=== PATIENT | female | born 1950 | race Hispanic/Latino ===

== ENCOUNTER 2016-09-08 15:38 | Emergency (ER) | payer MEDICAID, OTHER ==
[2016-09-08 15:38] VITALS: BMI 26.3
[2016-09-08 15:52] VITALS: O2SAT 98
[2016-09-08] MEDS ORDERED: Sodium Chloride 0.9% 1,000 ML IV ONE (16:25)
[2016-09-08] MEDS ORDERED: Sodium Chloride 0.9% 1,000 ML ONE (16:38)
--- NOTE | 2016-09-08 17:06 | CT ---
PROCEDURE: CT HEAD WITHOUT CONTRAST. HISTORY: left temporal headache COMPARISON: None available. TECHNIQUE: Axial computed tomography images were obtained through the head/brain without intravenous contrast. Radiation dose: Total exam DLP = 887.22 mGy-cm. This CT exam was performed using one or more of the following dose reduction techniques: Automated exposure control, adjustment of the mA and/or kV according to patient size, and/or use of iterative reconstruction technique. FINDINGS: HEMORRHAGE: No intracranial hemorrhage. BRAIN: Diffuse atrophy with prominence of the ventricles and sulci noted. No mass effect or edema. Intracranial atherosclerotic calcifications. The martinez-white matter differentiation appears intact. Please note that MRI with diffusion imaging is more sensitive in the detection of acute ischemic event. VENTRICLES: No hydrocephalus. CALVARIUM: Unremarkable. PARANASAL SINUSES: Unremarkable as visualized. No significant inflammatory changes. MASTOID AIR CELLS: Right mastoidectomy. The mastoid air cells appear grossly unremarkable. OTHER FINDINGS: None. IMPRESSION: No acute intracranial pathology identified. Findings as above.
--- NOTE | 2016-09-08 17:36 | C.PDOC ---
History Of Present Illness 66 y/o female sent from clinic for evaluation of left eye pain. Pt complains of pain and irritation to left eye, with sty to left lower eyelid becoming larger in size. Pt states she has a constant foreign body sensation in the eye. Took tylenol without relief. Pt has since developed left sided headache behind the eye, pointing toward temporal region, described as pressure. Pt also reports feeling lightheaded on the first day symptoms onset but denies dizziness, numbness (despite triage note), vision changes, fever, weakness, chest pain, SOB , slurred speech or any other complaints. Time Seen by Provider: 09/08/16 16:13 Chief Complaint (Nursing): Weakness/Neurological Deficit History Per: Patient History/Exam Limitations: no limitations Onset/Duration Of Symptoms: Days Current Symptoms Are (Timing): Worse Severity: Mild Recent travel outside of the [place]: No Past Medical History Reviewed: Historical Data, Nursing Documentation, Vital Signs Vital Signs: Last Vital Signs Temp 98.0 F 09/08/16 18:32 Pulse 62 09/08/16 18:32 Resp 16 09/08/16 18:32 BP 140/82 09/08/16 18:32 Pulse Ox 98 09/08/16 18:32 - Medical History PMH: Diabetes (NIDDM), HTN, Hypercholesterolemia, Osteoporosis Family History: States: Unknown Family Hx - Social History Hx Alcohol Use: No Hx Substance Use: No - Immunization History Hx Tetanus Toxoid Vaccination: No Hx Influenza Vaccination: Yes Hx Pneumococcal Vaccination: Yes Review Of Systems Constitutional: Negative for: Fever, Chills Eyes: Positive for: Other (pain and swelling to left lower eyelid). Negative for: Vision Change Cardiovascular: Negative for: Chest Pain Respiratory: Negative for: Shortness of Breath Gastrointestinal: Negative for: Vomiting Neurological: Positive for: Headache. Negative for: Weakness, Numbness, Change in Speech, Dizziness Physical Exam - Physical Exam Appears: Non-toxic, No Acute Distress Skin: Warm, Dry, No Rash Head: Atraumatic, Normacephalic, No Tenderness, No Swelling (no swelling or tenderness to temporal region) Eye(s): bilateral: PERRL, EOMI, left: Other (large 1 cm tender, firm nodule to left inner lower eyelid with man; no crust on lashes; no discharge) Neck: Normal, Normal ROM, Supple Chest: Symmetrical Cardiovascular: Rhythm Regular, No Murmur Respiratory: Normal Breath Sounds, No Rales, No Rhonchi, No Wheezing Gastrointestinal/Abdominal: Normal Exam, Soft, No Tenderness Extremity: Normal ROM Extremity: Bilateral: Atraumatic Neurological/Psych: Oriented x3, Normal Speech, Normal Cognition, Normal Cranial Nerves, Normal Motor, Normal Sensation, Other (Face symmetric. No facial droop. ) Gait: Steady ED Course And Treatment O2 Sat by Pulse Oximetry: 98 (room air) Pulse Ox Interpretation: Normal - CT Scan/US CT head Other Rad Studies (CT/US): Read By Radiologist, Radiology Report Reviewed CT/US Interpretation: Accession No. : [id number]. Patient Name / ID : [facility] DEL CID / [id number]. Exam Date : 09/08/2016 16:44:59 ( Approved ) . Study Comment : Sex / Age : F / 66Y. Creator : Carlotta Douglas MD. Dictator : Carlotta Douglas MD. Electric Car Operator : Information Services Manager : Carlotta Douglas MD. Approver2 : Report Date : 09/08/2016 17:05:00. My Comment : . PROCEDURE: CT HEAD WITHOUT CONTRAST. HISTORY: left temporal headache. COMPARISON: None available. TECHNIQUE: Axial computed tomography images were obtained through the head/brain without intravenous contrast. Radiation dose: Total exam DLP = 887.22 mGy-cm. This CT exam was performed using one or more of the following dose reduction techniques: Automated exposure control, adjustment of the mA and/or kV according to patient size, and/ or use of iterative reconstruction technique. FINDINGS: HEMORRHAGE: No intracranial hemorrhage. BRAIN: Diffuse atrophy with prominence of the ventricles and sulci noted. No mass effect or edema. Intracranial atherosclerotic calcifications. The martinez-white matter differentiation appears intact. Please note that MRI with diffusion imaging is more sensitive in the detection of acute ischemic event. VENTRICLES: No hydrocephalus. CALVARIUM: Unremarkable. PARANASAL SINUSES: Unremarkable as visualized. No significant inflammatory changes. MASTOID AIR CELLS: Right mastoidectomy. The mastoid air cells appear grossly unremarkable. OTHER FINDINGS: None. IMPRESSION: No acute intracranial pathology identified. Findings as above. Medical Decision Making Medical Decision Making: Plan: * CT head * Consult with Dr Mendoza Called Kelly 2-3 times, no answer and no call backs. Unable to discuss case. Discharged patient home to follow up outpatient with Kelly. Disposition - Disposition Referrals: Luigi Mendoza MD [Staff Provider] - Disposition: HOME/ ROUTINE Additional Instructions: Por favor, siga con optho ambulatorio para el orzuelo Regrese al servicio de urgencias en cualquier momento si los sntomas persisten o empeoran. Instructions: Chalazion (ED) Print Language: SWEDISH - PA / LAND SURVEYOR / Resident Statement MD/DO has reviewed & agrees with the documentation as recorded. - Scribe Statement The provider has reviewed the documentation as recorded by the Scribtoya Coto All medical record entries made by the Patricioibtoya were at my direction and personally dictated by me. I have reviewed the chart and agree that the record accurately reflects my personal performance of the history, physical exam, medical decision making, and the department course for this patient. I have also personally directed, reviewed, and agree with the discharge instructions and disposition.
[2016-09-08 18:33] VITALS: BP 140/82; PULSE 62; RESP 16; TEMP 98
--- NOTE | 2016-09-09 08:11 | C.PDOC ---
History Of Present Illness 66 y/o female sent from clinic for evaluation of left eye pain. Patient complains of pain and irritation to left eye, with stye to left lower eyelid becoming larger in size. Patient states she has a constant foreign body sensation in the eye. Took Tylenol without relief. Patient has since developed left sided headache behind the eye, pointing toward temporal region, described as pressure. Pt also reports feeling lightheaded on the first day symptoms onset but denies dizziness, numbness (despite triage note), vision changes, fever, weakness, chest pain, SOB, slurred speech or any other complaints. Time Seen by Provider: 09/08/16 16:13 Chief Complaint (Nursing): Weakness/Neurological Deficit History Per: Patient History/Exam Limitations: no limitations Onset/Duration Of Symptoms: Days Current Symptoms Are (Timing): Worse Injury To Eye?: No Wears Contact Lens?: No Past Medical History Reviewed: Historical Data, Nursing Documentation, Vital Signs Vital Signs: Last Vital Signs Temp 98.0 F 09/08/16 18:32 Pulse 62 09/08/16 18:32 Resp 16 09/08/16 18:32 BP 140/82 09/08/16 18:32 Pulse Ox 98 09/09/16 08:14 - Medical History PMH: Diabetes (NIDDM), HTN, Hypercholesterolemia, Osteoporosis Family History: States: Unknown Family Hx - Social History Hx Alcohol Use: No Hx Substance Use: No - Immunization History Hx Tetanus Toxoid Vaccination: No Hx Influenza Vaccination: Yes Hx Pneumococcal Vaccination: Yes Review Of Systems Except As Marked, All Systems Reviewed And Found Negative. Constitutional: Negative for: Fever Eyes: Positive for: Pain, Other (swelling to left lower eyelid) ENT: Negative for: Ear Pain Respiratory: Negative for: Cough Gastrointestinal: Negative for: Nausea, Vomiting Musculoskeletal: Negative for: Neck Pain Skin: Negative for: Rash Neurological: Positive for: Headache. Negative for: Weakness, Numbness, Dizziness Physical Exam - Physical Exam Appears: Non-toxic, No Acute Distress Skin: Warm, Dry Head: Atraumatic, Normacephalic, Other (no swelling or tenderness to temporal region) Eye(s): bilateral: PERRL, EOMI, left: Other (large 1 cm tender, firm nodule to left inner lower eyelid with man; no crust on lashes; no discharge) Ear(s): Bilateral: Normal Nose: Normal, No Flaring Oral Mucosa: Moist Neck: Normal, Supple Chest: Symmetrical Cardiovascular: Rhythm Regular, No Murmur Respiratory: Normal Breath Sounds, No Rales, No Rhonchi, No Wheezing Extremity: Normal ROM Neurological/Psych: Oriented x3, Normal Speech, Normal Cognition, Normal Cranial Nerves, No Cerebellar Signs, Normal Motor, Normal Sensation, Other (( Face symmetric. No facial droop. ) Gait: Steady ED Course And Treatment O2 Sat by Pulse Oximetry: 98 (room air) Pulse Ox Interpretation: Normal - CT Scan/US CT head Other Rad Studies (CT/US): Read By Radiologist, Radiology Report Reviewed CT/US Interpretation: CT/US Interpretation: Accession No. : [id number]. Patient Name / ID : [facility] DEL CID / [id number]. Exam Date : 09/08/2016 16 :44:59 ( Approved ). Study Comment : Sex / Age : F / 66Y. Creator : Carlotta Douglas MD. Dictator : Carlotta Douglas MD. Computer Technical Support Specialist : Infusion Pharmacist : Carlotta Douglas MD. Approver2 : Report Date : 09/08/2016 17: 05:00. My Comment : . PROCEDURE: CT HEAD WITHOUT CONTRAST. HISTORY: left temporal headache. COMPARISON: None available. TECHNIQUE: Axial computed tomography images were obtained through the head/brain without intravenous contrast. Radiation dose: Total exam DLP = 887.22 mGy-cm. This CT exam was performed using one or more of the following dose reduction techniques: Automated exposure control, adjustment of the mA and/or kV according to patient size, and/or use of iterative reconstruction technique. FINDINGS: HEMORRHAGE: No intracranial hemorrhage. BRAIN: Diffuse atrophy with prominence of the ventricles and sulci noted. No mass effect or edema. Intracranial atherosclerotic calcifications. The martinez-white matter differentiation appears intact. Please note that MRI with diffusion imaging is more sensitive in the detection of acute ischemic event. VENTRICLES: No hydrocephalus. CALVARIUM: Unremarkable. PARANASAL SINUSES: Unremarkable as visualized. No significant inflammatory changes. MASTOID AIR CELLS: Right mastoidectomy. The mastoid air cells appear grossly unremarkable. OTHER FINDINGS: None. IMPRESSION: No acute intracranial pathology identified. Findings as above. Medical Decision Making Medical Decision Making: Plan: CT head Consult with Dr Mendoza Reassess Progress: Head CT WNL Patient remained well in no acute distress, alert and oriented no neuro deficits. Called Kelly 2-3 times, no answer and no call backs. Unable to discuss case. Discharged patient home to follow up outpatient with Kelly. Recommend warm compresses After discharge Dr Mendoza called back and states he will see outpatient Disposition Counseled Patient/Family Regarding: Studies Performed, Diagnosis, Need For Followup - Disposition Referrals: Luigi Mendoza MD [Staff Provider] - Disposition: HOME/ ROUTINE Disposition Time: 18:41 Condition: STABLE Additional Instructions: Por favor, siga con optho ambulatorio para el orzuelo Regrese al servicio de urgencias en cualquier momento si los sntomas persisten o empeoran. Instructions: Chalazion (ED) Print Language: BELARUSIAN - POA Present On Arrival: None - Clinical Impression Clinical Impression: Chalazion of left eye - PA / SENIOR TECHNICAL ARCHITECT / Resident Statement MD/DO has reviewed & agrees with the documentation as recorded. - Scribe Statement The provider has reviewed the documentation as recorded by the Scribe Josh Velazquez Provider Scribe Attestation: All medical record entries made by the Scribe were at my direction and personally dictated by me. I have reviewed the chart and agree that the record accurately reflects my personal performance of the history, physical exam, medical decision making, and the department course for this patient. I have also personally directed, reviewed, and agree with the discharge instructions and disposition.
== END 2016-09-08 18:10 | disposition home or self-care (01) ==
LOC: C.ER 15:38
DX: H00.15 Chalazion left lower eyelid (principal)
CPT/HCPCS: 70450; 96360; 99285; J2765; J7040